=== PATIENT | male | born 1980 | race Caucasian/White ===

== ENCOUNTER 2021-06-27 13:19 | Outpatient (CLI) | payer OTHER, SELFPAY ==
--- NOTE | ~2021-06-27 | CT_ITS ---
EXAMINATION: CT sinus wo con DATE: 06/27/2021 13:43 INDICATION: Headache for years. Sinus congestion. TECHNIQUE: Computed tomography (CT) of the paranasal sinuses was performed without contrast. Iterativ e reconstruction technique was employed. Exam dose: 294.13 mGy-cm total exam DLP. COMPARISON: June 29, 2014 CT sinuses FINDINGS: There is leftward bowing of the nasal septum. There is relatively symmetric soft tissue prominence of the nasal turbinates. The ostiomeatal units are patent. 1 cm mucous retention cyst or polyp in the lower lateral right maxillary sinus. The paranasal sinuses are otherwise normally developed and aerated, without any significant mucoperiosteal thickening or o pacity. The mastoid air cells are normally aerated. IMPRESSION: 4. Bowing of nasal septum Soft tissue prominence of the nasal turbinates Approximately 1 cm mucous retention cyst or polyp of inferolateral right maxillary sinus; paranasal s inuses and mastoid air cells are otherwise well-aerated Reviewed, dictated and finalized at [facility]. Reviewed, dictated and finalized at [facility]. IMPRESSION: 4. Bowing of nasal septum Soft tissue prominence of the nasal turbinates Approximately 1 cm mucous retention cyst or polyp of inferolateral right maxill jana sinus; paranasal sinuses and mastoid air cells are otherwise well-aerated
== END 2021-06-27 13:20 | disposition home or self-care (01) ==
LOC: ANHIMG 13:24
PROVIDERS: Visit Provider Otolaryngology
DX: R51.9 Headache, unspecified (principal); R44.8 Other symptoms and signs involving general sensations and perceptions; J30.9 Allergic rhinitis, unspecified; R09.81 Nasal congestion; J34.89 Other specified disorders of nose and nasal sinuses; J34.3 Hypertrophy of nasal turbinates; J32.9 Chronic sinusitis, unspecified; R09.82 Postnasal drip
CPT/HCPCS: 70486

== ENCOUNTER 2023-09-21 23:14 | Emergency (ER) | payer OTHER, SELFPAY ==
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
[2023-09-21 23:30] VITALS: BP 140/100; PULSE 88; RESP 18; TEMP 35.9; O2SAT 99
[2023-09-22] MEDS: HYDROcodone/acetaminophen (*CRX) 5-325 MG TABLET 2 TAB PO (02:40)
[2023-09-22] MEDS: IBUPROFEN 400 MG TABLET 800 MG PO (02:40)
[2023-09-22] MEDS: ceFAZolin SODIUM 1 GM VIAL IM (02:41)
[2023-09-22] MEDS: TETANUS,DIPHTHERIA,AC PERTUSSIS ADULT (0.5 ML) BOOSTRIX IM (02:41)
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
[2023-09-22 03:05] VITALS: BP 138/87; PULSE 84; RESP 19; O2SAT 99
== END 2023-09-22 03:06 | disposition home or self-care (01) ==
PROVIDERS: Emergency Provider Emergency Medicine
DX: S81.812A Laceration without foreign body, left lower leg, initial encounter (principal); Z23 Encounter for immunization; F17.210 Nicotine dependence, cigarettes, uncomplicated; Z79.899 Other long term (current) drug therapy; W26.0XXA Contact with knife, initial encounter
CPT/HCPCS: 73590; 90471; 90715; 96372; 99283; A9270; J0690